=== PATIENT | female | born 1995 | race Caucasian/White ===

== ENCOUNTER 2018-06-21 20:34 | Emergency (ER) | payer OTHER ==
[~2018-06-21] VITALS: Ht 160 cm; Wt 59.0 kg
[2018-06-21 20:40] VITALS: BP 131/85
--- NOTE | 2018-06-21 20:40 | NUR ---
ED Nurse Note: pt came to ed c/o sunburn no other issues
[2018-06-21] MEDS ORDERED: HYDROCORTISONE-30 GM TOPIC (20:53)
[2018-06-21] MEDS ORDERED: BENADRYL25 M3 PO (20:53)
--- NOTE | 2018-06-21 20:57 | Emergency Room Report ---
History of Present Illness General Chief Complaint: Skin Rash/Abscess Source: Patient Present Illness HPI Patient presents with complaints of some burning throughout her facial chest and upper arm area Also similar alcaraz to her lower leg Patient reports that she was in [place] today Had put some aloe ointment on and felt that some of the redness has improved on the forehead however she felt more discomfort just above the eyebrow area increased fullness Also areas of blister starting to form on the chest area Tender to touch Denies any nausea vomiting denies any diarrhea Allergies: Coded Allergies: No Known Allergies (Unverified , 06/21/18) Patient History Past Medical History: see triage record Pertinent Family History: none Last Menstrual Period: 06/05/18 Now: No : 0 Reviewed Nursing Documentation: PMH: Agreed; PSxH: Agreed Nursing Documentation-PMH Past Medical History: No Stated History Review of Systems All Other Systems: negative except mentioned in HPI Physical Exam Vital Signs Date Time Temp Pulse Resp B/P (MAP) Pulse Ox O2 Delivery O2 Flow Rate FiO2 06/21/18 20:40 98.4 94 18 131/85 98 Room Air Sp02 EP Interpretation: reviewed, normal General Appearance: well appearing, no apparent distress Head: normocephalic, atraumatic Eyes: bilateral eye PERRL, bilateral eye EOMI ENT: normal pharynx, no angioedema Neck: supple Respiratory: lungs clear, no retraction Cardiovascular #1: regular rate, rhythm Gastrointestinal: soft Musculoskeletal: normal inspection Neurologic: alert, oriented x3, responsive Skin: other - Diffuse area of appears to be mainly first-degree sunburn, involving the forehead upper cheek area, there are no areas of blister formation in that region patient also has very mild erythema on the upper forearms the area on the chest does show several areas of small blister formation forming no other sloughing of the skin, Lymphatic: no adenopathy Medical Decision Making Diagnostic Impression: Primary Impression: first degree skin burn ER Course Given some of the appearance on the chest area patient was provided with low- dose steroid ointment for symptomatic relief patient requires continued cool wet towels Hydrating ointments Relief from the sun and close outpatient follow-up Last Vital Signs Date Time Temp Pulse Resp B/P (MAP) Pulse Ox O2 Delivery O2 Flow Rate FiO2 06/21/18 20:40 98.4 94 18 131/85 98 Room Air Status: unchanged Disposition: HOME, SELF-CARE Condition: Stable Scripts Diphenhydramine HCl (Benadryl) 25 Mg Capsule 25 MG PO BID, #15 CAP Prov: Jasmyne Lazcano DO 06/21/18 Hydrocortisone/Aloe Vera 1%* (HYDROCORTISONE-ALOE 1% CREAM*) Y Cr 1 APPLIC TOPIC BID PRN for Itching for 7 Days, #30 GM Prov: Jasmyne Lazcano DO 06/21/18 Patient Instructions: Burn Care, [id number], Sunburn, [id number] Additional Instructions: Patient is provided with the discharge instructions notified to follow up with primary doctor in the next 2-3 days otherwise return to the er with any worsening symptoms. Please note that this report is being documented using [employer] technology. This can lead to erroneous entry secondary to incorrect interpretation by the dictating instrument. Jasmyne Lazcano DO Jun 21, 2018 20:57
[2018-06-21 20:59] VITALS: BP 131/85
--- NOTE | 2018-06-21 20:59 | NUR ---
ER DISCHARGE NOTE: Patient is cleared to be discharged per ERMD, pt is aox4, on room air, with stable vital signs. pt was given dc and prescription instructions, pt was able to verbalize understanding, pt id band removed. pt is able to ambulate with steady gait. pt took all belongings.
== END 2018-06-21 21:00 | disposition home or self-care (01) ==
LOC: EMR 21:00
DX: L55.0 Sunburn of first degree (principal)
CPT/HCPCS: 99282